=== PATIENT | female | born 1965 | race Caucasian/White ===

== ENCOUNTER 2017-04-04 16:40 | Inpatient (IN) | payer SELFPAY ==
[2017-04-04] MEDS ORDERED: ONE DAILY1 EAC4 PO (17:45)
[2017-04-04] MEDS ORDERED: VITAMIN C100 M1 PO (17:50)
[2017-04-04 18:12] LABS: BASO % 0.2 % (0-2); EOSINOPHIL ABSOLUTE COUNT 0.1 tho/cmm (0.0-0.7); HGB-HEMOGLOBIN 12.3 gm/dl (12.0-15.5); IMMATURE GRANULOCYTES ABSOLUTE 0.02 tho/cmm (0-0.03); IMMATURE GRANULOCYTES PERCENT 0.2 % (0-0.3); LYMPH % 46.2 % (20-45); LYMPH ABSOLUTE COUNT 3.8 tho/cmm (0.8-4.5); MCH (MEAN CORPUSCULAR HGB) 26.5 pg (28.0-32.0); MCHC MEAN CORPUSCULAR HGB CONC 33.2 % (32.0-36.0); MCV (MEAN CELL VOLUME) 79.6 fl (82.0-96.0); MONO % 6.8 % (0-12); MONOCYTE ABSOLUTE COUNT 0.6 tho/cmm (0.0-1.2); NEUTROPHIL ABSOLUTE COUNT 3.8 tho/cmm (1.6-8.0); NEUTROPHIL-AUTOMATED 3.8 tho/cmm (1.6-8.0); NEUTROPHILS % 45.6 % (40-80); PLATELET COUNT 206 tho/cmm (150-450); RED BLOOD COUNT 4.65 mil/cmm (4.00-5.20); RED CELL DISTRIBUTION WIDTH 14.1 % (12.4-16.4); WHITE BLOOD COUNT 8.3 tho/cmm (4.0-10.0)
[2017-04-04 18:14] LABS: CARBON DIOXIDE-VENOUS 27 mmol/L (21-33); CREATININE 0.47 mg/dl (0.67-1.17); GLUCOSE 93 mg/dl (65-120); POTASSIUM 3.7 mmol/L (3.5-5.3); SODIUM 137 mmol/L (135-146); eGFR VALUE FOR BLACK >90 mL/Min
[2017-04-04 18:16] LABS: INR 1.1 INR (0.9-1.1); PROTHROMBIN TIME 12.5 SECONDS (9.0-13.6)
[2017-04-04 18:33] LABS: ALB/GLOB RATIO 0.7 (0.8-2.0); ALBUMIN 3.6 g/dl (3.5-5.0); ALKALINE PHOSPHATASE 170 U/L (33-138); ALT/SGPT 48 U/L (12-78); AST/SGOT 50 U/L (10-40); BILIRUBIN,TOTAL 0.5 mg/dl (0-1.5); BLOOD UREA NITROGEN 10 mg/dl (6-24); CHLORIDE 106 mmol/l (96-110)
[2017-04-04 18:39] LABS: ANION GAP 8 mmol/L (0-20)
[2017-04-04 18:52] LABS: ESR-ERYTHROCYTE SED RATE 66 mm/hr (0-30)
[2017-04-05 00:15] LABS: C-REACTIVE PROTEIN 3.2 mg/dl (0-0.9)
[2017-04-05 00:33] LABS: TSH-THYROID STIMULATING HORM. 0.71 uIU/ml (0.40-3.80)
[2017-04-05 02:30] LABS: BASO % 0.3 % (0-2); EOS % 1.6 % (0-7); EOSINOPHIL ABSOLUTE COUNT 0.1 tho/cmm (0.0-0.7); HCT-HEMATOCRIT 34.8 % (34.0-49.0); HGB-HEMOGLOBIN 11.4 gm/dl (12.0-15.5); IMMATURE GRANULOCYTES ABSOLUTE 0.01 tho/cmm (0-0.03); IMMATURE GRANULOCYTES PERCENT 0.1 % (0-0.3); LYMPH % 44.2 % (20-45); LYMPH ABSOLUTE COUNT 3.4 tho/cmm (0.8-4.5); MCH (MEAN CORPUSCULAR HGB) 26.3 pg (28.0-32.0); MCHC MEAN CORPUSCULAR HGB CONC 32.8 % (32.0-36.0); MCV (MEAN CELL VOLUME) 80.4 fl (82.0-96.0); MEAN PLATELET VOLUME 9.9 cmc (9.4-12.4); MONO % 7.9 % (0-12); MONOCYTE ABSOLUTE COUNT 0.6 tho/cmm (0.0-1.2); NEUTROPHIL ABSOLUTE COUNT 3.5 tho/cmm (1.6-8.0); NEUTROPHIL-AUTOMATED 3.5 tho/cmm (1.6-8.0); NEUTROPHILS % 45.9 % (40-80); PLATELET COUNT 193 tho/cmm (150-450); RED BLOOD COUNT 4.33 mil/cmm (4.00-5.20); RED CELL DISTRIBUTION WIDTH 14.1 % (12.4-16.4); WHITE BLOOD COUNT 7.6 tho/cmm (4.0-10.0)
[2017-04-05 02:45] LABS: ANION GAP 13 mmol/L (0-20); BLOOD UREA NITROGEN 11 mg/dl (6-24); CALCIUM 8.4 mg/dl (8.5-10.5); CARBON DIOXIDE-VENOUS 27 mmol/L (22-32); CHLORIDE 107 mmol/l (96-110); CHOLESTEROL 168 mg/dl (120-200); CREATININE 0.51 mg/dl (0.50-1.10); GLUCOSE 107 mg/dL (70-110); HDL CHOLESTEROL 41 mg/dl (40-60); LDL CHOLESTEROL 107 mg/dl (0-99); POTASSIUM 3.8 mmol/L (3.7-5.1); SODIUM 143 mmol/L (135-145); TRIGLYCERIDES 103 mg/dl (<149); VLDL 21 mg/dl (0-30); eGFR VALUE FOR BLACK >90 mL/Min
[2017-04-05 03:08] LABS: URINE BILIRUBIN NEGATIVE (NEG); URINE BLOOD SMALL (NEG); URINE GLUCOSE (UA) NEGATIVE (NEG); URINE KETONE NEGATIVE (NEG); URINE LEUKOCYTE ESTERASE POSITIVE (NEG); URINE NITRITE NEGATIVE (NEG); URINE PROTEIN MODERATE (NEG); URINE SPECIFIC GRAVITY 1.025 (1.003-1.030)
[2017-04-05 03:10] LABS: URINE APPEARANCE HAZY; URINE COLOR YELLOW
[2017-04-05 03:33] LABS: PROCALCITONIN 0.09 ng/ml (0.05-0.09)
[2017-04-05 03:37] LABS: URINE RBC 0-1 /[HPF] (0-5)
[2017-04-05 03:38] LABS: URINE BACTERIA 3+; URINE MUCUS 3+
[2017-04-08 05:05] LABS: BASO % 0.1 % (0-2); HGB-HEMOGLOBIN 12.2 gm/dl (12.0-15.5); IMMATURE GRANULOCYTES ABSOLUTE 0.03 tho/cmm (0-0.03); IMMATURE GRANULOCYTES PERCENT 0.2 % (0-0.3); LYMPH % 11.5 % (20-45); LYMPH ABSOLUTE COUNT 1.7 tho/cmm (0.8-4.5); MCH (MEAN CORPUSCULAR HGB) 26.8 pg (28.0-32.0); MCHC MEAN CORPUSCULAR HGB CONC 33.9 % (32.0-36.0); MCV (MEAN CELL VOLUME) 78.9 fl (82.0-96.0); MEAN PLATELET VOLUME 10.1 cmc (9.4-12.4); MONO % 3.4 % (0-12); MONOCYTE ABSOLUTE COUNT 0.5 tho/cmm (0.0-1.2); NEUTROPHIL ABSOLUTE COUNT 12.2 tho/cmm (1.6-8.0); NEUTROPHIL-AUTOMATED 12.2 tho/cmm (1.6-8.0); NEUTROPHILS % 84.8 % (40-80); PLATELET COUNT 250 tho/cmm (150-450); RED BLOOD COUNT 4.56 mil/cmm (4.00-5.20); RED CELL DISTRIBUTION WIDTH 13.7 % (12.4-16.4); WHITE BLOOD COUNT 14.4 tho/cmm (4.0-10.0)
[2017-04-08 05:15] LABS: ANION GAP 12 mmol/L (0-20); BLOOD UREA NITROGEN 12 mg/dl (6-24); CALCIUM 8.7 mg/dl (8.5-10.5); CARBON DIOXIDE-VENOUS 25 mmol/L (22-32); CHLORIDE 106 mmol/l (96-110); CREATININE 0.62 mg/dl (0.50-1.10); GLUCOSE 233 mg/dL (70-110); POTASSIUM 4.1 mmol/L (3.7-5.1); SODIUM 139 mmol/L (135-145); eGFR VALUE FOR BLACK >90 mL/Min
[2017-04-09] MEDS ORDERED: ASPIRIN81 M1 PO (11:55)
[2017-04-09] MEDS ORDERED: ZANAFLEX4 M2 PO (11:56)
[2017-04-09] MEDS ORDERED: KEFLEX500 M4 PO (11:56)
[2017-04-09] MEDS ORDERED: LIPITOR20 M1 PO (11:57)
== END 2017-04-09 13:33 | DRG 602 ==
LOC: EDMED 16:40 → EMR2 20:04 → 5EC 23:02
PROVIDERS: Emergency Medicine; Registered Nurse; ADMIT Family Medicine
DX: L03.114 Cellulitis of left upper limb (principal); S14.103A Unspecified injury at C3 level of cervical spinal cord, initial encounter; M48.02 Spinal stenosis, cervical region; Z72.0 Tobacco use; F15.10 Other stimulant abuse, uncomplicated; F12.10 Cannabis abuse, uncomplicated; Z79.82 Long term (current) use of aspirin; Z79.899 Other long term (current) drug therapy
CPT/HCPCS: A9577; C8929; G8987-GO-CJ; G8988-GO-CI; G8989-GO-CJ; J0295; J1100; J2543; J3370; J7030; J7050